=== PATIENT | male | born 1935 | race African-American/Black ===

== ENCOUNTER → 2016-06-08 | Outpatient (CLI) | payer OTHER ==
[~2016-06-08] MED LIST: ACETAMINOPHEN650 M5 PO; AMLODIPINE BESYL5 MG PO; ASCORBIC ACID500 M1 PO; ATORVASTATIN CA10 MG; ATORVASTATIN CA20 MG PO; BACITRACIN 500U30 G1 TOP; BACITRACIN15 GM; BISACODYL5 MG PO; CARVEDILOL12.5 MG PO; CATAPRES-TTS 10.1 MG TRANSDERM; CORRECTOL5 MG PO; CYMBALTA60 MG PO; D-20002000 UNIT PO; DOCUSATE SODIU100 MG PO; ENOXAPARIN30 MG/0.3 SQ; EUCERIN CREME57 GM TOP; FAMOTIDINE20 MG PO; FERRO-TIME325 MG PO; GLUCAGEN1 M2 SUBQ; HYDRALAZINE 2525 MG PO; K-DUR 20 MEQ T20 MEQ PO; LAMOTRIGINE100 M1 PO; LASIX 40 MG TAB40 M1 PO; LISINOPRIL40 MG PO; LORAZEPAM 1 MG T1 M1 PO; MAALOX PLUS X-150 ML PO; MOM PO; MUPIROCIN15 GM; MUPIROCIN22 GM TOP; NORCO 5-325 TA1 EACH PO; OMEPRAZOLE 20 M20 M1 PO; ONDANSETRON HCL4 M2 PO; ONDANSETRON ODT4 MG PO; ORAZINC220 MG PO; PEDIA-LAX400 MG; PLAVIX 75 MG TA75 M1 PO; POLYETHYLENE G255 GM PO; QUETIAPINE FUMA25 MG PO; SANTYL OINTMENT30 G1 TOP; SENNA; SENOKOT-S1 TA1 PO; ZINC10 MG; ZYRTEC10 M2 PO
== END ==
LOC: HYPER 07:00
DX: L89.623 Pressure ulcer of left heel, stage 3 (principal); E11.621 Type 2 diabetes mellitus with foot ulcer; E78.5 Hyperlipidemia, unspecified; I10 Essential (primary) hypertension; E11.51 Type 2 diabetes mellitus with diabetic peripheral angiopathy without gangrene; F32.9 Major depressive disorder, single episode, unspecified; F03.90 Unspecified dementia, unspecified severity, without behavioral disturbance, psychotic disturbance, mood disturbance, and anxiety; Z79.4 Long term (current) use of insulin; Z87.891 Personal history of nicotine dependence

== ENCOUNTER → 2016-07-09 | Outpatient (CLI) | payer OTHER | LOC: HYPER 07:06 | DX: E11.621 Type 2 diabetes mellitus with foot ulcer (principal); L97.421 Non-pressure chronic ulcer of left heel and midfoot limited to breakdown of skin; L89.623 Pressure ulcer of left heel, stage 3; E11.51 Type 2 diabetes mellitus with diabetic peripheral angiopathy without gangrene; F32.9 Major depressive disorder, single episode, unspecified; I10 Essential (primary) hypertension; Z79.4 Long term (current) use of insulin; Z87.891 Personal history of nicotine dependence ==

== ENCOUNTER → 2016-12-07 | Outpatient (CLI) | payer OTHER | LOC: HYPER 12-03 11:17 | DX: L89.890 Pressure ulcer of other site, unstageable (principal); E11.621 Type 2 diabetes mellitus with foot ulcer; L97.511 Non-pressure chronic ulcer of other part of right foot limited to breakdown of skin; I25.10 Atherosclerotic heart disease of native coronary artery without angina pectoris; E11.51 Type 2 diabetes mellitus with diabetic peripheral angiopathy without gangrene; E78.5 Hyperlipidemia, unspecified; I10 Essential (primary) hypertension; F32.9 Major depressive disorder, single episode, unspecified; F03.90 Unspecified dementia, unspecified severity, without behavioral disturbance, psychotic disturbance, mood disturbance, and anxiety; Z86.73 Personal history of transient ischemic attack (TIA), and cerebral infarction without residual deficits; Z87.891 Personal history of nicotine dependence ==

== ENCOUNTER → 2017-01-07 | Outpatient (CLI) | payer OTHER | LOC: HYPER 12-30 07:07 | DX: E11.621 Type 2 diabetes mellitus with foot ulcer (principal); L97.511 Non-pressure chronic ulcer of other part of right foot limited to breakdown of skin; L89.890 Pressure ulcer of other site, unstageable; I25.10 Atherosclerotic heart disease of native coronary artery without angina pectoris; Z86.73 Personal history of transient ischemic attack (TIA), and cerebral infarction without residual deficits; E11.51 Type 2 diabetes mellitus with diabetic peripheral angiopathy without gangrene; F32.9 Major depressive disorder, single episode, unspecified; I10 Essential (primary) hypertension; Z87.891 Personal history of nicotine dependence ==

== ENCOUNTER → 2017-03-30 | Outpatient (CLI) | payer OTHER | LOC: HYPER 07:01 | DX: L89.890 Pressure ulcer of other site, unstageable (principal); E11.621 Type 2 diabetes mellitus with foot ulcer; L97.521 Non-pressure chronic ulcer of other part of left foot limited to breakdown of skin; E11.51 Type 2 diabetes mellitus with diabetic peripheral angiopathy without gangrene; I69.320 Aphasia following cerebral infarction; E78.5 Hyperlipidemia, unspecified; I10 Essential (primary) hypertension; F32.9 Major depressive disorder, single episode, unspecified; F03.91 Unspecified dementia, unspecified severity, with behavioral disturbance; Z87.891 Personal history of nicotine dependence ==

== ENCOUNTER → 2017-04-28 | Outpatient (CLI) | payer OTHER | LOC: HYPER 06:48 | DX: L89.890 Pressure ulcer of other site, unstageable (principal); I25.10 Atherosclerotic heart disease of native coronary artery without angina pectoris; E11.621 Type 2 diabetes mellitus with foot ulcer; L97.511 Non-pressure chronic ulcer of other part of right foot limited to breakdown of skin; E11.51 Type 2 diabetes mellitus with diabetic peripheral angiopathy without gangrene; E78.5 Hyperlipidemia, unspecified; I10 Essential (primary) hypertension; F32.9 Major depressive disorder, single episode, unspecified; F03.90 Unspecified dementia, unspecified severity, without behavioral disturbance, psychotic disturbance, mood disturbance, and anxiety; Z87.891 Personal history of nicotine dependence; Z86.73 Personal history of transient ischemic attack (TIA), and cerebral infarction without residual deficits ==

== ENCOUNTER → 2017-05-17 | Outpatient (CLI) | payer OTHER | LOC: HYPER 06:56 | DX: L89.890 Pressure ulcer of other site, unstageable (principal); E11.621 Type 2 diabetes mellitus with foot ulcer; L97.511 Non-pressure chronic ulcer of other part of right foot limited to breakdown of skin; E78.5 Hyperlipidemia, unspecified; I10 Essential (primary) hypertension; E11.51 Type 2 diabetes mellitus with diabetic peripheral angiopathy without gangrene; F32.9 Major depressive disorder, single episode, unspecified; F03.90 Unspecified dementia, unspecified severity, without behavioral disturbance, psychotic disturbance, mood disturbance, and anxiety; Z87.891 Personal history of nicotine dependence ==

== ENCOUNTER → 2017-06-14 | Outpatient (CLI) | payer OTHER | LOC: HYPER 07:07 | DX: E11.621 Type 2 diabetes mellitus with foot ulcer (principal); L89.153 Pressure ulcer of sacral region, stage 3; L97.511 Non-pressure chronic ulcer of other part of right foot limited to breakdown of skin; E11.51 Type 2 diabetes mellitus with diabetic peripheral angiopathy without gangrene; I10 Essential (primary) hypertension; F32.9 Major depressive disorder, single episode, unspecified; F03.91 Unspecified dementia, unspecified severity, with behavioral disturbance; Z87.891 Personal history of nicotine dependence ==

== ENCOUNTER → 2017-07-15 | Outpatient (CLI) | payer OTHER | LOC: ULTRA 13:52 | DX: I73.9 Peripheral vascular disease, unspecified (principal); M79.662 Pain in left lower leg; E11.8 Type 2 diabetes mellitus with unspecified complications; I10 Essential (primary) hypertension; E78.5 Hyperlipidemia, unspecified ==